=== PATIENT | female | born 1970 | race Caucasian/White ===

== ENCOUNTER → 2017-03-04 | Outpatient (CLI) | payer OTHER | LOC: FIMAGING 10:14 | PROVIDERS: ATTEND Obstetrics & Gynecology | DX: Z12.31 Encounter for screening mammogram for malignant neoplasm of breast (principal); Z80.3 Family history of malignant neoplasm of breast | CPT/HCPCS: G0202 ==

== ENCOUNTER 2018-01-09 16:39 | Emergency (ER) | payer OTHER ==
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
[2018-01-09] MEDS ORDERED: fentaNYL 100 MCG/2 ML INJ IVP ONE (18:18)
[2018-01-09] MEDS ORDERED: LORazepam 2 MG/ML INJ IVP ONE (18:18)
[2018-01-09] MEDS ORDERED: ONDANSETRON 4 MG/2 ML VIAL ONE (18:25)
[2018-01-09 18:32] LABS: PLATELET COUNT 208 10^3/uL (150-400)
[2018-01-09 18:40] LABS: INR 0.96 (0.83-1.16)
[2018-01-09] MEDS ORDERED: OXYCODONE/APAP 5/325MG PREPACK#4 BTL TAKEHOME ONE (18:47)
[2018-01-09] MEDS ORDERED: OXYCODONE/APAP 5/325 TAB PO ONE (18:47)
[2018-01-09] MEDS ORDERED: ONDANSETRON 4 MG/2 ML VIAL IVP ONE (19:01)
[2018-01-09 19:21] VITALS: BP 118/88
== END 2018-01-09 19:20 | disposition home or self-care (01) ==
DX: S42.021A Displaced fracture of shaft of right clavicle, initial encounter for closed fracture (principal); V18.0XXA Pedal cycle driver injured in noncollision transport accident in nontraffic accident, initial encounter; Y92.410 Unspecified street and highway as the place of occurrence of the external cause; Y93.55 Activity, bike riding
CPT/HCPCS: 96374; J2060; J2405; J3010

== ENCOUNTER 2018-01-10 13:08 | Day surgery (SDC) | payer OTHER ==
[2018-01-10] MEDS ORDERED: LR 1,000 ML IV ONE (14:27)
[2018-01-10] MEDS ORDERED: fentaNYL 100 MCG/2 ML INJ IVP PRN ×2 (14:28→17:12)
--- NOTE | 2018-01-10 15:04 | PDHPUP ---
History & Physical Update H&P update statement: This history and physical update is based on an assessment of the patient which was completed after admission or registration (within 24 hours), but prior to the surgery/procedure. H&P update: H&P reviewed & patient examined, no change in patient's condition since H&P completed
--- NOTE | 2018-01-10 15:48 | PDANEPAE ---
ANE History of Present Illness 47 yo for orif clavicle ANE Past Medical History - Cardiovascular History Hx Hypertension: No Hx Arrhythmias: No Hx Chest Pain: No Hx Coronary Artery / Peripheral Vascular Disease: No Hx CHF / Valvular Disease: No Hx Palpitations: No - Pulmonary History Hx COPD: No Hx Asthma/Reactive Airway Disease: No Hx Recent Upper Respiratory Infection: No Hx Oxygen in Use at Home: No Hx Sleep Apnea: No - Neurologic History Hx Cerebrovascular Accident: No Hx Seizures: No Hx Dementia: No - Endocrine History Hx Diabetes: No - Renal History Hx Renal Disorders: No - Liver History Hx Hepatic Disorders: No - Neurological & Psychiatric Hx Hx Neurological and Psychiatric Disorders: No - Cancer History Hx Cancer: No - Congenital Disorder History Hx Congenital Disorders: No - GI History Hx Gastrointestinal Disorders: No - Other Health History Other Health History: none - Chronic Pain History Chronic Pain: No - Surgical History Prior Surgeries: . basil cell carcinoma removal 2005 ANE Review of Systems Review of Systems: - Exercise capacity METS (RN): 5 METS ANE Patient History - Allergies Allergies/Adverse Reactions: No Known Allergies Allergy (Unverified 01/09/18 16:45) - Home Medications Home Medications: NK [No Known Home Meds] 01/09/18 [Last Taken Unknown] - NPO status NPO Since - Liquids (Date): 01/10/18 NPO Since - Liquids (Time): 08:00 NPO Since - Solids (Date): 01/09/18 NPO Since - Solids (Time): 20:00 - Anes Hx Anes Hx: no prior problems - Smoking Hx Smoking Status: Never smoked - Family Anes Hx Family Hx Anesthesia Complications: none ANE Labs/Vital Signs - Vital Signs Blood Pressure: 104/69 Heart Rate: 61 Respiratory Rate: 16 O2 Sat (%): 95 Height: 5 ft 5 in Weight: 55.792 kg ANE Physical Exam - Airway Neck exam: FROM Mallampati Score: Class 2 Mouth exam: normal dental/mouth exam - Pulmonary Pulmonary: no respiratory distress - Cardiovascular Cardiovascular: regular rate and rhythym - ASA Status ASA Status: I ANE Anesthesia Plan Anesthesia Plan: GA w LMA
[2018-01-10] MEDS ORDERED: MIDAZOLAM 2 MG/2 ML VIAL IVP ONE (15:51)
[2018-01-10] MEDS ORDERED: MIDAZOLAM 2 MG/2 ML VIAL ONE (15:53)
[2018-01-10] MEDS ORDERED: fentaNYL 100 MCG/2 ML INJ ONE ×2 (16:01→18:10)
[2018-01-10] MEDS ORDERED: PROPOFOL/EMULSION 500 MG/50 ML BOTTLE IV ONE (16:01)
[2018-01-10] MEDS ORDERED: DEXAMETHASONE 4 MG/ML VIAL ONE (16:03)
[2018-01-10] MEDS ORDERED: ceFAZolin 1 GM VIAL ONE (16:24)
[2018-01-10] MEDS ORDERED: BUPIVACAINE/EPI 0.5% 30 ML SDV ONE (16:34)
[2018-01-10] MEDS ORDERED: ONDANSETRON 4 MG/2 ML VIAL IVP PRN (17:12)
[2018-01-10] MEDS ORDERED: PROMETHAZINE HCL 25 MG/ML INJ IVP PRN (17:12)
[2018-01-10] MEDS ORDERED: oxyCODONE IR 5 MG TAB PO PRN (17:12)
[2018-01-10] MEDS ORDERED: NALOXONE HCL 0.4 MG/ML INJ IVP PRN (17:12)
[2018-01-10] MEDS ORDERED: HYDROmorphONE/DILAUDID 1 MG/ML INJ IVP PRN (17:12)
--- NOTE | 2018-01-10 17:40 | POSTOPPROG ---
Post Op Note Date of Operation: 01/10/18 Surgeon: Jose Luis Chu Glass Products Inspector: CARRI Denise Anesthesiologist: MD Bronson Anesthesia: GET(General Endotracheal) Pre-op Diagnosis: R clavicle fracture Post-op Diagnosis: same Indication: skin tenting Procedure: R clavicle ORIF Inf/Abcess present in the surg proc area at time of surgery?: No EBL: 50-100 (50)
[2018-01-10] MEDS ORDERED: oxyCODONE IR 5 MG TAB ONE (18:48)
[2018-01-10 19:59] VITALS: BP 114/75
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
== END 2018-01-10 20:19 | disposition home or self-care (01) ==
LOC: FSGY 13:08
PROVIDERS: ATTEND Orthopaedic Surgery
PROC: 0PS904Z Reposition Right Clavicle with Internal Fixation Device, Open Approach (ICD-10-PCS; principal; 2018-01-10 14:15)
DX: S42.021A Displaced fracture of shaft of right clavicle, initial encounter for closed fracture (principal); V18.0XXA Pedal cycle driver injured in noncollision transport accident in nontraffic accident, initial encounter; Y93.55 Activity, bike riding
CPT/HCPCS: 23515; 76001; C1769; C1713; J0690; J1100; J2250; J2704; J3010

== ENCOUNTER → 2018-03-22 | Outpatient (CLI) | payer OTHER | LOC: FIMAGING 09:01 | PROVIDERS: ATTEND Obstetrics & Gynecology | DX: Z12.31 Encounter for screening mammogram for malignant neoplasm of breast (principal); Z80.3 Family history of malignant neoplasm of breast ==